=== PATIENT | female | born 1990 | race Two or more races ===

== ENCOUNTER → 2023-11-08 | Outpatient (REF) | payer BC ==
[2023-11-13 15:09] LABS: HPV APTIMA Negative (Negative)
== END ==
LOC: M SFHCWAGY 17:34
PROVIDERS: ATTEND Specialist
DX: Z12.4 Encounter for screening for malignant neoplasm of cervix (principal); R87.610 Atypical squamous cells of undetermined significance on cytologic smear of cervix (ASC-US)
CPT/HCPCS: 87624; G0123

== ENCOUNTER 2023-12-18 08:50 | Day surgery (SDC) | payer BC ==
[~2023-12-18] VITALS: Ht 165.1 cm; Wt 114.2 kg
[~2023-12-18 08:50] MED LIST: ALLE10TA62 PO; LAMO100T3 PO
[2023-12-18] MEDS ORDERED: LIDOCAINE 2% 100MG/5ML SDV (FOR ANES.) As Ordered ONE (09:22)
[2023-12-18] MEDS ORDERED: ACETAMINOPHEN 1000MG 100ML IV BAG As Ordered ONE (09:22)
[2023-12-18] MEDS ORDERED: propofoL 200 MG/20 ML VIAL As Ordered ONE (09:22)
[2023-12-18] MEDS ORDERED: ROCURONIUM BROMIDE 50MG/5ML VIAL As Ordered ONE (09:22)
[2023-12-18] MEDS ORDERED: MIDAZOLAM INJ 2MG/2ML VIAL As Ordered ONE (09:22)
[2023-12-18] MEDS ORDERED: fentaNYL 100 MCG/2 ML INJECTION As Ordered ONE (09:22)
[2023-12-18 09:23] LABS: HEMATOCRIT 35.2 % (36.0-47.0); HEMOGLOBIN 11.3 g/dl (12.0-15.5); MEAN CORPUSCULAR HEMOGLOBIN 25.4 pg (27.0-33.0); MEAN CORPUSCULAR HGB CONC 32.1 g/dl (32.0-36.5); MEAN CORPUSCULAR VOLUME 79.1 fl (80.0-96.0); PLATELET COUNT, AUTOMATED 228 10^3/uL (150-450); RED BLOOD COUNT 4.45 10^6/uL (4.00-5.40); WHITE BLOOD COUNT 5.3 10^3/uL (4.0-10.0)
[2023-12-18] MEDS ORDERED: LR 1,000 ML IV SCH (09:40)
[2023-12-18] MEDS ORDERED: SUGAMMADEX SODIUM 500 MG/5 ML VIAL (BRIDION) As Ordered ONE (10:25)
[2023-12-18] MEDS ORDERED: KETOROLAC 60MG 2ML VIAL As Ordered ONE (10:25)
[2023-12-18] MEDS ORDERED: ONDANSETRON 4MG 2ML VIAL As Ordered ONE (10:25)
[2023-12-18] MEDS ORDERED: METOCLOPRAMIDE INJ 10MG/2ML VIAL IV PRN (11:10)
[2023-12-18] MEDS ORDERED: ONDANSETRON 4MG 2ML VIAL IV PRN (11:10)
[2023-12-18] MEDS ORDERED: fentaNYL 100 MCG/2 ML INJECTION IV PRN (11:10)
[2023-12-18] MEDS: oxyCODONE 5MG TAB PO PRN (11:32)
[2023-12-18] MEDS: LR 1,000 ML IV SCH (11:32)
[2023-12-18] MEDS: HYDROMORPHONE HCL 0.5 MG/ 0.5 ML SYRINGE IV PRN (11:33)
[2023-12-18] MEDS ORDERED: IBUP-1022 PO (11:54)
[2023-12-18] MEDS ORDERED: OXYC1TAB23 PO (11:55)
[2023-12-18 12:43] VITALS: BP 113/65; TEMP 96.6; O2SAT 95
== END 2023-12-18 13:00 | disposition home or self-care (01) ==
LOC: M SDC 08:50
PROVIDERS: ATTEND Specialist
DX: N83.202 Unspecified ovarian cyst, left side (principal); F41.9 Anxiety disorder, unspecified; F32.A Depression, unspecified; Z79.899 Other long term (current) drug therapy; Z87.891 Personal history of nicotine dependence
CPT/HCPCS: 36415; 58662; 81025; 85027; 88305; J0131; J0665; J1100; J1170; J1885; J2250; J2405; J3010